=== PATIENT | female | born 1965 | race Caucasian/White ===

== ENCOUNTER 2017-08-25 16:07 | Inpatient (IN) ==
[2017-08-25 16:43] LABS: Bilirubin,Urine Negative (Negative); Blood,Urine Negative (Negative); Clarity,Urine Clear (Clear); Color,Urine Yellow (Yellow); Glucose,Urine (UA) Normal (Normal); Ketones,Urine Negative (Negative); Leukocyte Esterase,Urine Negative (Negative); Nitrite,Urine Negative (Negative); Protein,Urine Negative (Neg-Trace); Specific Gravity,Urine 1.018 (1.010-1.025); Urobilinogen,Urine Normal (Normal)
[2017-08-25 16:46] LABS: Amphetamine Screen,Urine Negative ng/mL (Cutoff=1000); Barbiturate Screen,Urine Negative ng/mL (Cutoff=200); Benzodiazepines Screen,Urine Positive ng/mL (Cutoff=200); Cannabinoid Screen,Urine Negative ng/mL (Cutoff = 50); Cocaine Screen,Urine Negative ng/mL (Cutoff= 300); Opiate Screen,Urine Negative ng/mL (Cutoff=300); Phencyclidine Screen,Urine Negative ng/mL (Cutoff=25)
[2017-08-25 17:07] LABS: Basophils # 0.1 K/mcL (0.0-0.2); Basophils % 1.2 %; Eosinophils # 0.1 K/mcL (0.0-0.6); Eosinophils % 1.2 %; Ethanol < 10 mg/dL (0-10); Hematocrit 40.4 % (35.3-44.9); Hemoglobin 13.5 g/dL (11.5-15.4); Immature Granulocytes % 0.3 % (0-4); Lymphocytes # 2.1 K/mcL (0.6-4.6); Mean Corpuscular HGB Conc 33.4 g/dL (31.6-35.5); Mean Corpuscular Hemoglobin 29.7 pg (28.0-33.3); Mean Platelet Volume 8.6 fL (9.4-12.4); Monocytes # 0.4 K/mcL (0.0-1.3); Monocytes % 6.6 %; Neutrophils # 3.4 K/mcL (1.6-8.9); Platelet Count 336 K/mcL (140-400); Red Blood Count 4.54 M/mcL (3.82-4.97); Red Cell Distribution Width 14.2 % (11.5-14.5); Salicylate 12.4 mg/dL (15.0-30.0); Segmented Neutrophils % 55.7 %
[2017-08-25 17:16] LABS: Blood Urea Nitrogen 7 mg/dL (6-20); Calcium 9.4 mg/dL (8.6-10.3); Carbon Dioxide 21 mEq/L (23-29); Chloride 102 mEq/L (98-107); Glucose 110 mg/dL (70-105); Osmolality,Calculated 277 (280-300); Potassium 3.5 mEq/L (3.5-5.1); Sodium 134 mEq/L (136-145)
--- NOTE | 2017-08-25 17:40 | Emergency Department Note ---
Disposition Clinical Impression: Suicidal ideation Alcohol withdrawal Qualifiers: Complication of substance-induced condition: uncomplicated Qualified Code(s): F10.230 - Alcohol dependence with withdrawal, uncomplicated Disposition: Admitted As Inpatient Condition: Fair Referrals: NONE,PCP [Primary Care Provider] - Forms: ED Satisfaction Letter Time of Disposition: 19:04 General Adult HPI - General Chief complaint: ED Psychiatric Symptoms Stated complaint: SI/ETOH abuse Time Seen by Provider: 08/25/17 16:19 Source: patient, family Mode of arrival: ambulatory Limitations: no limitations Nursing Notes Reviewed: Yes Vital Signs Reviewed: Yes - History of Present Illness HPI Narrative: Patient is a 51-year-old female with past medical history of depression, previous suicide attempt with admission to [facility], history of chronic alcohol use with 5-8 beers daily. She presents today due to concern for suicidal ideation. She says that she has been trying to stop alcohol over the past 12 hours and has started to have withdrawal symptoms of shaking. She was also also hearing voices that are telling her to kill and cut herself. She does state that she has a plan to take her sleeping medication that night so that she would not wake up. She denies any self injury today, denies any other ingestions at home prior to arrival. Denies any somatic complaints of chest pain, shortness breath, nausea, vomiting, fevers or chills have diffuse muscle aches from withdrawal. She said that her last drink was last night around 10 PM. Denies any visual hallucinations, homicidal ideation. Pain Scale: 7 - Related Data Home Medications Medication Instructions Recorded Confirmed Estradiol [Estrace] 1 mg PO DAILY 02/10/17 02/24/17 Gabapentin [Neurontin] 600 mg PO TID 02/10/17 02/24/17 Omeprazole [PriLOSEC] 40 mg PO DAILY 02/10/17 02/24/17 Quetiapine Fumarate [Seroquel] 200 mg PO HS 02/10/17 02/24/17 Ranitidine HCl [Acid [employer]] 150 mg PO BID 02/10/17 02/24/17 Trazodone HCl 200 mg PO HS 02/10/17 02/24/17 clonazePAM [Klonopin] 0.5 mg PO TID 02/10/17 02/24/17 lamoTRIgine [Lamictal] 300 mg PO HS 02/10/17 02/24/17 Diclofenac Sodium [Voltaren] 75 mg PO BID PRN 02/24/17 02/24/17 Fluticasone Propionate Nasal 1 spray NS DAILY 02/24/17 02/24/17 [Flonase] Previous Rx's Medication Instructions Recorded Docusate Sodium [Colace] 100 mg PO BID #60 capsule 02/10/17 Docusate [Colace] 100 mg PO BID #60 capsule 02/24/17 HYDROcodone/Acet 7.5/325 mg [[place] 1 tab PO Q6H PRN #20 tablet 02/24/17 7.5-325 mg] Promethazine [Phenergan] 25 mg PO Q6HR PRN #15 tablet 02/24/17 Allergies Allergy/AdvReac Type Severity Reaction Status Date / Time Buspirone [From BuSpar] AdvReac Shakiness Verified 02/24/17 07:59 codeine AdvReac Nausea Verified 02/24/17 07:59 succinylcholine AdvReac Difficulty Verified 02/24/17 10:31 Breathing All systems ED: reviewed and negative except as stated. Constitutional: Denies: fever Cardiovascular: Denies: chest pain, palpitations Respiratory: Denies: cough, dyspnea Gastrointestinal: Denies: abdominal pain, nausea, vomiting, diarrhea Genitourinary: Denies: urgency, dysuria, frequency Musculoskeletal: Reports: myalgia Psychiatric: Reports: depression, suicidal thoughts, auditory hallucinations. Denies: homicidal thoughts, visual hallucinations Past Medical History - Past Medical History Attestation: Yes The following information was validated with the patient. Source: patient Medical history: Reports: glaucoma, hypertension, seizures, other Surgical history: Reports: breast surgery, hysterectomy Psychiatric history: Reports: depression, panic disorder, prior suicide attempt , previous psychiatric hospitalization, other [employer] history: Reports: bilateral tubal ligation - Social History Smoking Status: Never smoker Smokeless Tobacco Status: No Alcohol use: Reports: heavy Drug use: Reports: none, marijuana Physical Exam - General Limitations: no limitations General appearance: alert - Head Head exam: atraumatic, normocephalic, normal inspection - Eye Eye exam: Present: normal appearance, PERRL, EOMI - ENT ENT exam: normal exam, normal oropharynx, mucous membranes moist - Neck Neck exam: Present: normal inspection, full ROM, trachea midline - Chest Chest inspection: Present: normal inspection, symmetric chest wall rise - Respiratory Respiratory exam: Present: normal lung sounds bilaterally - Cardiovascular Cardiovascular exam: Present: regular rate, normal rhythm, normal heart sounds - Abdominal Exam Abdominal exam: Present: soft, Non-Tender. Absent: tenderness, distention, guarding, rebound, rigidity - Extremities Exam Extremities exam: Present: normal inspection, full ROM. Absent: tenderness, pedal edema - Neurological Exam Neurological exam: Present: alert, oriented X3, CN II-XII intact, other ( Moderate tremors throughout upper extremity and lower extremities). Absent: motor sensory deficit - Psychiatric Psychiatric exam: Present: normal affect, normal mood - Skin Skin exam: Present: warm, dry, intact, normal color Course Course Narrative: Patient has elevated blood pressure reading. Otherwise, the rest of the vitals were within normal limits. Physical exam was fairly benign except for tremors of extremities. Medical clearance was obtained. She was positive for benzodiazepines, aspirin level 12.4. Otherwise, the rest of the workup was negative. Patient was given Ativan 2 mg, started on CIWA protocol, given banana bag. [place] slip was placed on chart for suicidal ideation with the plan. We will admit the patient for medical care for withdrawal symptoms. Patient was accepted by hospitalist for admission, discussed the need for a sitter due to pink slip status. Vital Signs Temperature 97.6 F 08/25/17 16:09 Pulse Rate 98 08/25/17 16:09 Respiratory Rate 18 08/25/17 16:09 Blood Pressure 161/115 08/25/17 16:09 O2 Sat by Pulse Oximetry 98 08/25/17 16:09 Temperature 97.6 F 08/25/17 16:09 Pulse Rate 82 08/25/17 18:31 Respiratory Rate 18 08/25/17 18:31 Blood Pressure 135/88 08/25/17 18:31 O2 Sat by Pulse Oximetry 97 08/25/17 18:31 Oxygen Delivery Oxygen Delivery Room Air Medical Decision Making - MDM Narrative Medical decision making narrative: Patient has elevated blood pressure reading. Otherwise, the rest of the vitals were within normal limits. Physical exam was fairly benign except for tremors of extremities. Medical clearance was obtained. She was positive for benzodiazepines, aspirin level 12.4. Otherwise, the rest of the workup was negative. Patient was given Ativan 2 mg, started on CIWA protocol, given banana bag. [place] slip was placed on chart for suicidal ideation with the plan. We will admit the patient for medical care for withdrawal symptoms. Patient was accepted by hospitalist for admission, discussed the need for a sitter due to pink slip status. - Medical Records Medical records reviewed: Yes I reviewed the patient's medical records. - Lab Data Lab results reviewed: Yes I reviewed the patient's lab results. Result diagrams: 08/25/17 16:39 08/25/17 16:39 Lab Results 08/25/17 08/25/17 08/25/17 Range/Units 16:23 16:23 16:39 WBC 6.0 (4.3-11.1) K/mcL RBC 4.54 (3.82-4.97) M/mcL Hgb 13.5 (11.5-15.4) g/dL Hct 40.4 (35.3-44.9) % MCV 89.0 (83.0-100.0) fL MCH 29.7 (28.0-33.3) pg MCHC 33.4 (31.6-35.5) g/dL RDW 14.2 (11.5-14.5) % Plt Count 336 (140-400) K/mcL MPV 8.6 L (9.4-12.4) fL Immature Gran % 0.3 (0-4) % Seg Neutrophils % 55.7 % Lymphocytes % 35.0 % Monocytes % 6.6 % Eosinophils % 1.2 % Basophils % 1.2 % Neutrophils # 3.4 (1.6-8.9) K/mcL Lymphocytes # 2.1 (0.6-4.6) K/mcL Monocytes # 0.4 (0.0-1.3) K/mcL Eosinophils # 0.1 (0.0-0.6) K/mcL Basophils # 0.1 (0.0-0.2) K/mcL Sodium (136-145) mEq/L Potassium (3.5-5.1) mEq/L Chloride (98-107) mEq/L Carbon Dioxide (23-29) mEq/L BUN (6-20) mg/dL Creatinine (0.60-1.20) mg/dL Est GFR ( Amer) (> 60) Est GFR (Non-Af Amer) (> 60) BUN/Creatinine Ratio (6-26) Glucose (70-105) mg/dL Calculated Osmolality (280-300) Calcium (8.6-10.3) mg/dL Urine Color Yellow (Yellow) Urine Clarity Clear (Clear) Urine pH 6.0 (5.0-8.0) pH Units Ur Specific [place] 1.018 (1.010-1.025) Urine Protein Negative (Neg-Trace) mg/dL Urine Glucose (UA) Normal (Normal) mg/dL Urine Ketones Negative (Negative) mg/dL Urine Blood Negative (Negative) Urine Nitrite Negative (Negative) Urine Bilirubin Negative (Negative) Urine Urobilinogen Normal (Normal) mg/dL Ur Leukocyte Esterase Negative (Negative) Ur Culture Indicated? NO (NO) Salicylates (15.0-30.0) mg/dL Urine Opiates Screen Negative (Mjkcib=489) ng/mL Acetaminophen (10-30) mcg/mL Ur Barbiturates Screen Negative (Aqfsac=227) ng/mL Ur Phencyclidine Scrn Negative (Cutoff=25) ng/mL Ur Amphetamines Screen Negative (Ozlahd=1702) ng/mL U Benzodiazepines Scrn Positive H (Wgamma=549) ng/mL Urine Cocaine Screen Negative (Cutoff= 300) ng/mL U Marijuana (THC) Screen Negative (Cutoff = 50) ng/mL Ethyl Alcohol (0-10) mg/dL 08/25/17 Range/Units 16:39 WBC (4.3-11.1) K/mcL RBC (3.82-4.97) M/mcL Hgb (11.5-15.4) g/dL Hct (35.3-44.9) % MCV (83.0-100.0) fL MCH (28.0-33.3) pg MCHC (31.6-35.5) g/dL RDW (11.5-14.5) % Plt Count (140-400) K/mcL MPV (9.4-12.4) fL Immature Gran % (0-4) % Seg Neutrophils % % Lymphocytes % % Monocytes % % Eosinophils % % Basophils % % Neutrophils # (1.6-8.9) K/mcL Lymphocytes # (0.6-4.6) K/mcL Monocytes # (0.0-1.3) K/mcL Eosinophils # (0.0-0.6) K/mcL Basophils # (0.0-0.2) K/mcL Sodium 134 L (136-145) mEq/L Potassium 3.5 (3.5-5.1) mEq/L Chloride 102 (98-107) mEq/L Carbon Dioxide 21 L (23-29) mEq/L BUN 7 (6-20) mg/dL Creatinine 0.72 (0.60-1.20) mg/dL Est GFR ( Amer) > 60 (> 60) Est GFR (Non-Af Amer) > 60 (> 60) BUN/Creatinine Ratio 10 (6-26) Glucose 110 H (70-105) mg/dL Calculated Osmolality 277 L (280-300) Calcium 9.4 (8.6-10.3) mg/dL Urine Color (Yellow) Urine Clarity (Clear) Urine pH (5.0-8.0) pH Units Ur Specific [place] (1.010-1.025) Urine Protein (Neg-Trace) mg/dL Urine Glucose (UA) (Normal) mg/dL Urine Ketones (Negative) mg/dL Urine Blood (Negative) Urine Nitrite (Negative) Urine Bilirubin (Negative) Urine Urobilinogen (Normal) mg/dL Ur Leukocyte Esterase (Negative) Ur Culture Indicated? (NO) Salicylates 12.4 L (15.0-30.0) mg/dL Urine Opiates Screen (Vwcspc=623) ng/mL Acetaminophen 11.0 (10-30) mcg/mL Ur Barbiturates Screen (Jgynqc=310) ng/mL Ur Phencyclidine Scrn (Cutoff=25) ng/mL Ur Amphetamines Screen (Otahaq=0138) ng/mL U Benzodiazepines Scrn (Pjkfcr=528) ng/mL Urine Cocaine Screen (Cutoff= 300) ng/mL U Marijuana (THC) Screen (Cutoff = 50) ng/mL Ethyl Alcohol < 10 (0-10) mg/dL - Radiology Data Radiology results reviewed: Yes I reviewed the patient's radiology results. S.B.A.R. - S.B.A.R. Situation: Demographics, MOA Background: Presenting Complaint, Relevant PMH, Meds, & Allergies Assessment: Vital Signs, Course and respsone to treatment, Exam Concerns, Patient/Family Expectation, Pertinant Lab Results, Outstanding Labs Recommendation: Barrier(s) to disposition, Recommendation based on pending studies, treatments, or consults S.B.A.Theo Report Given to: Kin Cordero Repor Time: 19:04 Attestation Statement - Attestation Attestation: I, Ronny Castro DO, examined this patient [id number] and my medical decision-making was reviewed with Dr. Mj Hamilton Resident Physician. I agree with the documented findings, disposition and treatment plan as described except to the extent set forth below. Please see my progress notes for details.
[2017-08-25] MEDS ORDERED: Thiamine (B-1) 100 MG, Folic Acid 1 MG, MVI, adult with vitamin K 10 ML in 0.9 % Sodi... IVPB SCH (18:00)
[2017-08-25] MEDS ORDERED: *HR* LORazepam 2 MG/ML VIAL IVP ONE (18:06)
[2017-08-25 18:19] LABS: BUN/Creatinine Ratio 10 (6-26); eGFR For African Americans > 60 (> 60); eGFR For Non-African Americans > 60 (> 60)
--- NOTE | 2017-08-25 18:42 | Emergency Department Note ---
Disposition Clinical Impression: Suicidal ideation Alcohol withdrawal Qualifiers: Complication of substance-induced condition: uncomplicated Qualified Code(s): F10.230 - Alcohol dependence with withdrawal, uncomplicated Disposition: Admitted As Inpatient Condition: Fair Referrals: NONE,PCP [Primary Care Provider] - Forms: ED Satisfaction Letter Time of Disposition: 18:43 General Adult HPI - General Chief complaint: ED Psychiatric Symptoms Stated complaint: SI/ETOH abuse Time Seen by Provider: 08/25/17 16:19 Source: patient, family Mode of arrival: ambulatory Limitations: no limitations - History of Present Illness Pain Scale: 7 - Related Data Home Medications Medication Instructions Recorded Confirmed Estradiol [Estrace] 1 mg PO DAILY 02/10/17 02/24/17 Gabapentin [Neurontin] 600 mg PO TID 02/10/17 02/24/17 Omeprazole [PriLOSEC] 40 mg PO DAILY 02/10/17 02/24/17 Quetiapine Fumarate [Seroquel] 200 mg PO HS 02/10/17 02/24/17 Ranitidine HCl [Acid [employer] Le[employer]] 150 mg PO BID 02/10/17 02/24/17 Trazodone HCl 200 mg PO HS 02/10/17 02/24/17 clonazePAM [Klonopin] 0.5 mg PO TID 02/10/17 02/24/17 lamoTRIgine [Lamictal] 300 mg PO HS 02/10/17 02/24/17 Diclofenac Sodium [Voltaren] 75 mg PO BID PRN 02/24/17 02/24/17 Fluticasone Propionate Nasal 1 spray NS DAILY 02/24/17 02/24/17 [Flonase] Previous Rx's Medication Instructions Recorded Docusate Sodium [Colace] 100 mg PO BID #60 capsule 02/10/17 Docusate [Colace] 100 mg PO BID #60 capsule 02/24/17 HYDROcodone/Acet 7.5/325 mg [[place] 1 tab PO Q6H PRN #20 tablet 02/24/17 7.5-325 mg] Promethazine [Phenergan] 25 mg PO Q6HR PRN #15 tablet 02/24/17 Allergies Allergy/AdvReac Type Severity Reaction Status Date / Time Buspirone [From BuSpar] AdvReac Shakiness Verified 02/24/17 07:59 codeine AdvReac Nausea Verified 02/24/17 07:59 succinylcholine AdvReac Difficulty Verified 02/24/17 10:31 Breathing Past Medical History - Past Medical History Medical history: Reports: glaucoma, hypertension, seizures, other Surgical history: Reports: breast surgery, hysterectomy Psychiatric history: Reports: depression, panic disorder, prior suicide attempt , previous psychiatric hospitalization, other [employer]PER[employer] history: Reports: bilateral tubal ligation - Social History Smoking Status: Never smoker Smokeless Tobacco Status: No Alcohol use: Reports: heavy Drug use: Reports: none, marijuana Physical Exam - General Limitations: no limitations General appearance: alert Course Vital Signs Temperature 97.6 F 08/25/17 16:09 Pulse Rate 98 08/25/17 16:09 Respiratory Rate 18 08/25/17 16:09 Blood Pressure 161/115 08/25/17 16:09 O2 Sat by Pulse Oximetry 98 08/25/17 16:09 Temperature 97.6 F 08/25/17 16:09 Pulse Rate 82 08/25/17 18:31 Respiratory Rate 18 08/25/17 18:31 Blood Pressure 135/88 08/25/17 18:31 O2 Sat by Pulse Oximetry 97 08/25/17 18:31 Oxygen Delivery Oxygen Delivery Room Air Medical Decision Making - Lab Data Result diagrams: 08/25/17 16:39 08/25/17 16:39 Lab Results 08/25/17 08/25/17 08/25/17 Range/Units 16:23 16:23 16:39 WBC 6.0 (4.3-11.1) K/mcL RBC 4.54 (3.82-4.97) M/mcL Hgb 13.5 (11.5-15.4) g/dL Hct 40.4 (35.3-44.9) % MCV 89.0 (83.0-100.0) fL MCH 29.7 (28.0-33.3) pg MCHC 33.4 (31.6-35.5) g/dL RDW 14.2 (11.5-14.5) % Plt Count 336 (140-400) K/mcL MPV 8.6 L (9.4-12.4) fL Immature Gran % 0.3 (0-4) % Seg Neutrophils % 55.7 % Lymphocytes % 35.0 % Monocytes % 6.6 % Eosinophils % 1.2 % Basophils % 1.2 % Neutrophils # 3.4 (1.6-8.9) K/mcL Lymphocytes # 2.1 (0.6-4.6) K/mcL Monocytes # 0.4 (0.0-1.3) K/mcL Eosinophils # 0.1 (0.0-0.6) K/mcL Basophils # 0.1 (0.0-0.2) K/mcL Sodium (136-145) mEq/L Potassium (3.5-5.1) mEq/L Chloride (98-107) mEq/L Carbon Dioxide (23-29) mEq/L BUN (6-20) mg/dL Creatinine (0.60-1.20) mg/dL Est GFR ( Amer) (> 60) Est GFR (Non-Af Amer) (> 60) BUN/Creatinine Ratio (6-26) Glucose (70-105) mg/dL Calculated Osmolality (280-300) Calcium (8.6-10.3) mg/dL Urine Color Yellow (Yellow) Urine Clarity Clear (Clear) Urine pH 6.0 (5.0-8.0) pH Units Ur Specific [place] 1.018 (1.010-1.025) Urine Protein Negative (Neg-Trace) mg/dL Urine Glucose (UA) Normal (Normal) mg/dL Urine Ketones Negative (Negative) mg/dL Urine Blood Negative (Negative) Urine Nitrite Negative (Negative) Urine Bilirubin Negative (Negative) Urine Urobilinogen Normal (Normal) mg/dL Ur Leukocyte Esterase Negative (Negative) Ur Culture Indicated? NO (NO) Salicylates (15.0-30.0) mg/dL Urine Opiates Screen Negative (Xvhskv=493) ng/mL Acetaminophen (10-30) mcg/mL Ur Barbiturates Screen Negative (Cplgji=397) ng/mL Ur Phencyclidine Scrn Negative (Cutoff=25) ng/mL Ur Amphetamines Screen Negative (Uesizr=6077) ng/mL U Benzodiazepines Scrn Positive H (Zufarx=294) ng/mL Urine Cocaine Screen Negative (Cutoff= 300) ng/mL U Marijuana (THC) Screen Negative (Cutoff = 50) ng/mL Ethyl Alcohol (0-10) mg/dL 08/25/17 Range/Units 16:39 WBC (4.3-11.1) K/mcL RBC (3.82-4.97) M/mcL Hgb (11.5-15.4) g/dL Hct (35.3-44.9) % MCV (83.0-100.0) fL MCH (28.0-33.3) pg MCHC (31.6-35.5) g/dL RDW (11.5-14.5) % Plt Count (140-400) K/mcL MPV (9.4-12.4) fL Immature Gran % (0-4) % Seg Neutrophils % % Lymphocytes % % Monocytes % % Eosinophils % % Basophils % % Neutrophils # (1.6-8.9) K/mcL Lymphocytes # (0.6-4.6) K/mcL Monocytes # (0.0-1.3) K/mcL Eosinophils # (0.0-0.6) K/mcL Basophils # (0.0-0.2) K/mcL Sodium 134 L (136-145) mEq/L Potassium 3.5 (3.5-5.1) mEq/L Chloride 102 (98-107) mEq/L Carbon Dioxide 21 L (23-29) mEq/L BUN 7 (6-20) mg/dL Creatinine 0.72 (0.60-1.20) mg/dL Est GFR ( Amer) > 60 (> 60) Est GFR (Non-Af Amer) > 60 (> 60) BUN/Creatinine Ratio 10 (6-26) Glucose 110 H (70-105) mg/dL Calculated Osmolality 277 L (280-300) Calcium 9.4 (8.6-10.3) mg/dL Urine Color (Yellow) Urine Clarity (Clear) Urine pH (5.0-8.0) pH Units Ur Specific [place] (1.010-1.025) Urine Protein (Neg-Trace) mg/dL Urine Glucose (UA) (Normal) mg/dL Urine Ketones (Negative) mg/dL Urine Blood (Negative) Urine Nitrite (Negative) Urine Bilirubin (Negative) Urine Urobilinogen (Normal) mg/dL Ur Leukocyte Esterase (Negative) Ur Culture Indicated? (NO) Salicylates 12.4 L (15.0-30.0) mg/dL Urine Opiates Screen (Alaist=303) ng/mL Acetaminophen 11.0 (10-30) mcg/mL Ur Barbiturates Screen (Kusktd=179) ng/mL Ur Phencyclidine Scrn (Cutoff=25) ng/mL Ur Amphetamines Screen (Zahbvo=3971) ng/mL U Benzodiazepines Scrn (Ggxclr=952) ng/mL Urine Cocaine Screen (Cutoff= 300) ng/mL U Marijuana (THC) Screen (Cutoff = 50) ng/mL Ethyl Alcohol < 10 (0-10) mg/dL Attestation Statement - Attestation Attestation: I, Ronny Castro DO, examined this patient [id number] and my medical decision-making was reviewed with Dr. Mj Hamilton, Resident Physician. I agree with the documented findings, disposition and treatment plan as described except to the extent set forth below. Please see my progress notes for details. 51-year-old female presents to the emergency room for evaluation of suicidal ideation, depression, significant life stressors and EDT H abuse with withdrawal presentation. Patient is coming in today for help. Patient denies any chest pain shortness of breath headaches vision changes nausea vomiting or diarrhea. Patient has generalized malaise and some intermittent confusion. She does appear to be symptoms of alcohol withdrawal. CiwA protocol was started here 2 mg of Ativan being given for symptomatic control. Medical clearance. Patient will be admitted for medical evaluation and then evaluation by the psychiatric team. Patient is otherwise currently stable at this point. Vital signs are unremarkable. Head is atraumatic pupils are equal round reactive intraocular muscles are intact. Lungs are clear heart is regular. Abdomen is soft. Patient has no signs of pitting edema. Patient will be admitted for definitive management. See detailed documentation of the physical exam, medical intervention, medical decision-making and disposition in the resident physician's note. No critical care applied this patient's treatment course. Patient will be admitted at this time for definitive management.
[2017-08-25] MEDS: *HR* Promethazine 25 MG/ML VIAL IVP PRN (18:59)
[2017-08-25] MEDS: *HR* LORazepam 2 MG/ML VIAL IVP PRN (18:59)
[2017-08-25] MEDS ORDERED: Naloxone 0.4 MG/ML INJ IVP PRN (21:15)
--- NOTE | 2017-08-25 21:22 | Internal Med History&Physical ---
Date of Encounter: 08/25/17 Time of Encounter: 21:20 Assessment and Plan (1) Alcohol withdrawal Current visit: Yes Status: Acute Schedule Librium CIWA protocol Qualifiers: Complication of substance-induced condition: with perceptual disturbance Qualified Code(s): F10.232 - Alcohol dependence with withdrawal with perceptual disturbance (2) Suicidal ideation Current visit: Yes Status: Acute Psych evaluation, suicide precautions, dual diagnosis, sitter (3) Depression Current visit: Yes Status: Acute Pending psych optimization Qualifiers: Active/Remission status: currently active Psychotic features: with psychotic features Qualified Code(s): 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 Mireles is a 51 year old female with history of depression, anxiety who presents with Suicidal ideations, alcohol withdrawals. She has been experiencing alcohol relapse and has been drinking approximately 10 cans of beer daily. Last drink was last evening at 9:30 PM. She developed shakes, tremors and symptoms of alcohol withdrawal. She visited her PCP today Dr. Robb in [place] and was advised to present to the ER for detoxification. On review she has also developed suicidal ideations with visual and auditory hallucinations telling her to cut herself. Suicidal thoughts did not improve with time and has been going on for the last few months. Past Med Surg Social Fam HX - Past Medical History Medical history: glaucoma, hypertension, seizures, other Psychiatric history: depression, panic disorder, prior suicide attempt, previous psychiatric hospitalization, other - Past Surgical History Surgical History: breast surgery, hysterectomy - Social History Smoking Status: Never smoker Smokeless Tobacco Status: No Alcohol use: heavy Drug use: none, marijuana Internal Medicine - H&P: Meds Estradiol [Estrace] 1 mg PO DAILY 02/10/17 [History] Gabapentin [Neurontin] 600 mg PO TID 02/10/17 [History] Quetiapine Fumarate [Seroquel] 200 mg PO HS 02/10/17 [History] Trazodone HCl 200 mg PO HS 02/10/17 [History] Albuterol Sulfate [Ventolin Hfa] 2 puff IH Q4-6H PRN 08/25/17 [History] Paroxetine [Paxil] 60 mg PO DAILY 08/25/17 [History] clonazePAM [Klonopin] 1 mg PO BID 08/25/17 [History] 3 Allergy/AdvReac Type Severity Reaction Status Date / Time Buspirone [From BuSpar] AdvReac Shakiness Verified 02/24/17 07:59 codeine AdvReac Nausea Verified 02/24/17 07:59 succinylcholine AdvReac Difficulty Verified 02/24/17 10:31 Breathing All Systems PM: A 10-system review of systems was performed and is negative for pertinent findings except as documented above in the HPI. - Constitutional Vitals: Temp Pulse Resp BP Pulse Ox 98.0 F 84 15 139/84 94 08/25/17 20:54 08/25/17 20:54 08/25/17 20:54 08/25/17 20:54 08/25/17 20:54 Exam: General - AAO x 3 Psych - Appropriate affect/speech. No agitation Eyes - JUSTIN. Eye lids intact. No scleral icterus Neuro - fine tremors . No gross peripheral or central neuro deficits on inspection Heart - Sinus. RRR. S1 and S2 present. No added HS/murmurs appreciated. No elevated JVD appreciated. Lung - Adequate air entry b/l, No crackles/wheezes appreciated GI - Soft, non-tender. No hepatosplenomegaly/ascites. BS+ - No CVA/suprapubic tenderness or palpable bladder distension Skin - Intact. No rash/petechiae/ecchymosis. Warm extremities MSK - Joints with normal ROM. No joint swellings Internal Med - H&P Results - Labs CBC & Chem 7: 08/25/17 16:39 08/25/17 16:39
[2017-08-25] MEDS: clonazePAM 1 MG TABLET PO SCH (22:22)
[2017-08-25] MEDS: traZODone 50 MG TABLET PO SCH (22:23)
[2017-08-25] MEDS: Gabapentin 300 MG CAPSULE PO SCH (22:23)
[2017-08-25] MEDS ORDERED: *HR* LORazepam 2 MG/ML VIAL IVP PRN ×2 (22:38)
[2017-08-25] MEDS: Ondansetron 4 MG/2 ML VIAL IVP PRN (23:02)
[2017-08-26] MEDS: *HR* LORazepam 2 MG/ML VIAL IVP PRN (03:39)
[2017-08-26 04:39] LABS: Hematocrit 37.3 % (35.3-44.9); Hemoglobin 12.4 g/dL (11.5-15.4); Mean Corpuscular HGB Conc 33.2 g/dL (31.6-35.5); Mean Corpuscular Volume 90.1 fL (83.0-100.0); Mean Platelet Volume 8.9 fL (9.4-12.4); Platelet Count 316 K/mcL (140-400); Red Blood Count 4.14 M/mcL (3.82-4.97); Red Cell Distribution Width 14.3 % (11.5-14.5)
[2017-08-26 04:59] LABS: Alanine Aminotransferase 10 Units/L (7-52); Albumin 3.7 g/dL (3.5-5.7); Albumin/Globulin Ratio 1.3 (1.1-2.2); Alkaline Phosphatase 60 Units/L (34-104); Aspartate Amino Transferase 14 Units/L (13-39); BUN/Creatinine Ratio 9 (6-26); Bilirubin,Total 0.3 mg/dL (0.3-1.0); Blood Urea Nitrogen 6 mg/dL (6-20); Calcium 8.6 mg/dL (8.6-10.3); Carbon Dioxide 24 mEq/L (23-29); Chloride 106 mEq/L (98-107); Globulin 2.8 g/dL (2.4-3.5); Glucose 82 mg/dL (70-105); Osmolality,Calculated 281 (280-300); Potassium 3.5 mEq/L (3.5-5.1); Sodium 137 mEq/L (136-145); Total Protein 6.5 g/dL (6.4-8.9); eGFR For African Americans > 60 (> 60); eGFR For Non-African Americans > 60 (> 60)
[2017-08-26] MEDS: *HR* Enoxaparin 40 MG/0.4 ML SYRINGE SQ SCH (05:15)
[2017-08-26] MEDS ORDERED: Gabapentin 300 MG CAPSULE PO SCH (09:00)
[2017-08-26] MEDS ORDERED: clonazePAM 1 MG TABLET PO SCH (09:00)
[2017-08-26] MEDS: Gabapentin 300 MG CAPSULE PO SCH ×3 (09:06→19:59)
[2017-08-26] MEDS: Folic Acid 1 MG TABLET PO SCH (09:06)
[2017-08-26] MEDS: clonazePAM 1 MG TABLET PO SCH ×2 (09:06→19:59)
[2017-08-26] MEDS: Vitamin B Complex/Vit C/Vit E 1 EACH TABLET PO SCH (09:07)
[2017-08-26] MEDS: *HR* Promethazine 25 MG/ML VIAL IVP PRN ×3 (10:26→21:53)
[2017-08-26] MEDS: Artificial Tears SOLN 15 ML BOTTLE LEFT EYE SCH ×3 (13:31→19:59)
--- NOTE | 2017-08-26 14:40 | Internal Med Progress Note ---
Date of Encounter: 08/26/17 Time of Encounter: 14:38 - Assessment and plan (1) Drug-seeking behavior Current Visit: Yes Status: Acute Assessment and plan: Requesting Ativan on a very frequent basis and appears to know exactly what to say to score on the CIWA to obtain such (2) Alcohol withdrawal Current Visit: Yes Status: Acute Assessment and plan: Continue CIWA protocol Social service consult Continue to monitor closely Qualifiers: Complication of substance-induced condition: with perceptual disturbance Qualified Code(s): F10.232 - Alcohol dependence with withdrawal with perceptual disturbance (3) Depression Current Visit: Yes Status: Acute Assessment and plan: Pending psych evaluation Qualifiers: Active/Remission status: currently active Psychotic features: with psychotic features Qualified Code(s): F32.3 - Major depressive disorder, single episode, severe with psychotic features (4) Suicidal ideation Current Visit: Yes Status: Acute Assessment and plan: Psych evaluation pending. Continue sitter, suicide precautions, alcohol dependence with withdrawal - Subjective Interval history: Patient is lying in bed. She states that she drinks 10 periods a day. She is alert and cooperative. She has no tremors noted. She continues to ask for Ativan. She states that she has bugs crawling her but if nobody's in the room she lies very quietly. She told me she does not want to be admitted to a rehabilitation she just wants to be dried out and then she will go home and see what she is going to do. We await her psych evaluation, she also complains of some nausea. 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 - Constitutional Vitals: Temp Pulse Resp BP Pulse Ox 97.5 F L 82 16 123/82 95 08/26/17 09:09 08/26/17 09:09 08/26/17 09:09 08/26/17 09:09 08/26/17 09:09 General appearance: Present: cooperative, A&O X 3, pleasant, underweight, answers questions appropriately - Head Head exam: Present: atraumatic, normocephalic - Eye Eye exam: Present: PERRL, conjuntiva pink, sclera anicteric Pupils: Present: PERRL Additional comments: Left eye is reported as blind by the patient. Slightly drooping no drainage noted no injection of the conjunctivae, sclera is pink and moist - Neck Neck exam general surgery: Present: supple, trachea midline. Absent: lymphadenopathy - Respiratory Respiratory exam: Present: CTAB. Absent: accessory muscle use, rales, rhonchi, wheezes - Cardiovascular Cardiovascular exam: Present: RRR, +S1, +S2. Absent: diastolic murmur, gallop, rubs, systolic murmur - GI/Abdominal GI/Abdominal exam: Present: normal bowel sounds, soft, no peritoneal signs. Absent: distended, tenderness - Extremities Exam Extremities exam: Present: warm, radial pulses palpable and symmetrical. Absent : calf tenderness, cyanotic, pedal edema - Neurological Exam Neurological exam: Present: alert, CN II-XII intact, oriented X3, no focal deficits, strengths equal and symetr throughout. Absent: motor sensory deficit , pronater drift, facial droop, speech deficit - Skin Skin exam: Present: dry, intact, normal color, warm Internal Medicine: Result - Labs CBC & Chem 7: 08/26/17 03:39 08/26/17 03:39 Labs: Short CBC 08/26/17 Range/Units 03:39 WBC 6.1 (4.3-11.1) K/mcL Hgb 12.4 (11.5-15.4) g/dL Hct 37.3 (35.3-44.9) % Plt Count 316 (140-400) K/mcL BMP 08/26/17 03:39 Sodium 137 Potassium 3.5 Chloride 106 Carbon Dioxide 24 BUN 6 Creatinine 0.68 Glucose 82 Calcium 8.6 Liver Function 08/26/17 Range/Units 03:39 Total Bilirubin 0.3 (0.3-1.0) mg/dL AST 14 (13-39) Units/L ALT 10 (7-52) Units/L Alkaline Phosphatase 60 (34-104) Units/L Albumin 3.7 (3.5-5.7) g/dL Consult Discharge Plan - Plan Referrals: NONE,PCP [Primary Care Provider] -
--- NOTE | 2017-08-26 17:30 | Consult Note ---
Date of Encounter: 08/26/17 Time of Encounter: 17:00 Assessment & Recommendation (1) Alcohol withdrawal Current visit: Yes Status: Chronic Assessment & Recommendation: Continue Close observation for safety and withdrawal symptoms Cont Ativan Detox protocol Refer to Alcohol rehab after discharge Qualifiers: Complication of substance-induced condition: uncomplicated Qualified Code(s ): F10.230 - Alcohol dependence with withdrawal, uncomplicated (2) Depression Current visit: Yes Status: Chronic Qualifiers: Depression Type: major depressive disorder Major depression recurrence: recurrent Active/Remission status: currently active Major depression episode severity: mild Qualified Code(s): F33.0 - Major depressive disorder, recurrent, mild (3) Drug-seeking behavior Current visit: Yes Status: Chronic (4) Suicidal ideation Current visit: Yes Status: Resolved History of Present Illness Patient: known to practice within the last 3 years Requesting Physician: Jose Manuel Moreland MD Reason for consult: depression, Si History of present illness: Ms. Mireles is a 51 year old female, , lives by self, on SSI with h/o depression and anxiety disorder, borderline personlity disorder, h/o multiple inpatient hoapitalizations, most recent 12yrsgo, h/o multiple suicide attempt (4 -5) by cutting by self, h/o alcohol use disorder, h/o alcohol withdrawal seizure disorder, h/o DT admitted to the medicine floor for alcohol withdrawal. Psychiatry consulted for depression, SI and hallucination. Patient seen at bedside laying in bed in no acute distress. She was calm, cooperative and well related. She mentioned she came to the hospital for detox from alcohol. Patient endorsed a long h/o of alcohol dependence with increase in her intake the past month after 6months of sobriety. Patient also endorsed a h/o of depression and anxiety and follows up with a Psychiatrist at [facility] and was last seen a month. Patient reported compliance with her medications which include Seroquel 200mg, Trazodone 200mg, Klonopin 1mg BID ad Gabepentin. She patient denied depressive symptoms at the time of her evaluation and reported exacerbation of her symptoms when she drinks heavily. There were no signs and symptoms of withdrawal and the time of eval but patient endorsed severe fatigue and severe dizziness with ambulation. On review of symptoms, she denied any mood/psychotic symptoms including AH/VH/TI/HI /SI. She is logical and goal directed and deem an imminent risk to self or others at this time. There were no significant finding on MSE. Diagnosis; Alcohol withdrawal Alcohol use disorder MDD recurrent in remission Unspefied anxiety disorder Plan: Continue to manage on the medical floor Continue CO for safety Continue to monitor for withdrawal signs and symptoms due to h/o DT Patient is psychiatrically stable at present time and can be discharged to follow up woth out patient Psychiatrist when medically stable CC: Jose Manuel Moreland MD Past Med Surg Social Fam HX - Past Medical History Medical history: glaucoma, hypertension, seizures, other - Past Psychiatric History Psychiatric history: Reports: anxiety, depression, previous psychiatric hospitalization Family History of Suicide: Attempted - Past Surgical History Surgical History: breast surgery, hysterectomy - Social History Smoking Status: Never smoker Smokeless Tobacco Status: No Alcohol use: heavy Drug use: none, marijuana - Family History Sister Hx Family Cancer: Yes (pancreatic) Medications & Allergies Estradiol [Estrace] 1 mg PO DAILY 02/10/17 [History] Gabapentin [Neurontin] 600 mg PO TID 02/10/17 [History] Quetiapine Fumarate [Seroquel] 200 mg PO HS 02/10/17 [History] Trazodone HCl 200 mg PO HS 02/10/17 [History] Albuterol Sulfate [Ventolin Hfa] 2 puff IH Q4-6H PRN 08/25/17 [History] Paroxetine [Paxil] 60 mg PO DAILY 08/25/17 [History] clonazePAM [Klonopin] 1 mg PO BID 08/25/17 [History] 3 Allergy/AdvReac Type Severity Reaction Status Date / Time Buspirone [From BuSpar] AdvReac Shakiness Verified 02/24/17 07:59 codeine AdvReac Nausea Verified 02/24/17 07:59 succinylcholine AdvReac Difficulty Verified 02/24/17 10:31 Breathing Review of Systems Constitutional: Reports: weakness Eyes: Reports: eye pain Ears, Nose, Throat: Denies: ear pain, throat pain, dental pain, hearing loss, congestion Cardiovascular: Denies: chest pain, palpitations, dyspnea on exertion Respiratory: Denies: cough, dyspnea, wheezes Gastrointestinal: Denies: abdominal pain, nausea, vomiting, diarrhea, constipation Genitourinary female: Denies: urgency, dysuria, frequency, abnormal menses, dyspareunia Musculoskeletal: Denies: joint swelling, joint pain Integumentary: Denies: rash, lesions, pruritus Neurological: Denies: headache, weakness, numbness, memory loss Psychiatric: Reports: depression Endocrine: Denies: heat or cold intolerance Hematologic/Lymphatic: Denies: easy bruising, lymphadenopathy Allergic/Immunologic: Denies: urticaria, itchy eyes Psychiatry Exam - Constitutional Vitals: Temp Pulse Resp BP Pulse Ox 97.5 F L 82 16 123/82 95 08/26/17 09:09 08/26/17 09:09 08/26/17 09:09 08/26/17 09:09 08/26/17 09:09 General appearance: age & developmentally appropriate - Musculoskeletal Gait: normal - Psychiatric Patient Orientation: Yes Person, Yes Time, Yes Place Level of alertness: Alert Behavior: calm, cooperative Psychomotor activity: Normal Eye Contact: Maintains Eye Contact Mood Description: Euthymic/stable Affect description: congruent with mood Speech Volume: Soft/Quiet Speech pattern: normal rate, normal rhythm Language & Vocabulary: consistent with education Thought Process: Logical, Goal Oriented Thought Content: Yes Intact Perceptual Disturbances: No Auditory hallucinations, No Visual hallucinations Attention Span Ability: Capable of Focused Attention Memory Description: Grossly Intact Patient Reliability: Reliable Historian Fund of knowledge: Yes average, Yes aware of current events Intelligence Estimate: Average Judgment: Limited Insight: Full Results - Drug Levels and Toxicology Drug Levels and Toxicology: n - Labs Labs: Laboratory Last Values WBC 6.1 K/mcL (4.3-11.1) 08/26/17 03:39 RBC 4.14 M/mcL (3.82-4.97) 08/26/17 03:39 Hgb 12.4 g/dL (11.5-15.4) 08/26/17 03:39 Hct 37.3 % (35.3-44.9) 08/26/17 03:39 MCV 90.1 fL (83.0-100.0) 08/26/17 03:39 MCH 30.0 pg (28.0-33.3) 08/26/17 03:39 MCHC 33.2 g/dL (31.6-35.5) 08/26/17 03:39 RDW 14.3 % (11.5-14.5) 08/26/17 03:39 Plt Count 316 K/mcL (140-400) 08/26/17 03:39 MPV 8.9 fL (9.4-12.4) L 08/26/17 03:39 Immature Gran % 0.3 % (0-4) 08/25/17 16:39 Seg Neutrophils % 55.7 % 08/25/17 16:39 Lymphocytes % 35.0 % 08/25/17 16:39 Monocytes % 6.6 % 08/25/17 16:39 Eosinophils % 1.2 % 08/25/17 16:39 Basophils % 1.2 % 08/25/17 16:39 Neutrophils # 3.4 K/mcL (1.6-8.9) 08/25/17 16:39 Lymphocytes # 2.1 K/mcL (0.6-4.6) 08/25/17 16:39 Monocytes # 0.4 K/mcL (0.0-1.3) 08/25/17 16:39 Eosinophils # 0.1 K/mcL (0.0-0.6) 08/25/17 16:39 Basophils # 0.1 K/mcL (0.0-0.2) 08/25/17 16:39 Sodium 137 mEq/L (136-145) 08/26/17 03:39 Potassium 3.5 mEq/L (3.5-5.1) 08/26/17 03:39 Chloride 106 mEq/L (98-107) 08/26/17 03:39 Carbon Dioxide 24 mEq/L (23-29) 08/26/17 03:39 BUN 6 mg/dL (6-20) 08/26/17 03:39 Creatinine 0.68 mg/dL (0.60-1.20) 08/26/17 03:39 Est GFR ( Amer) > 60 (> 60) 08/26/17 03:39 Est GFR (Non-Af Amer) > 60 (> 60) 08/26/17 03:39 BUN/Creatinine Ratio 9 (6-26) 08/26/17 03:39 Glucose 82 mg/dL (70-105) 08/26/17 03:39 Calculated Osmolality 281 (280-300) 08/26/17 03:39 Calcium 8.6 mg/dL (8.6-10.3) 08/26/17 03:39 Total Bilirubin 0.3 mg/dL (0.3-1.0) 08/26/17 03:39 AST 14 Units/L (13-39) 08/26/17 03:39 ALT 10 Units/L (7-52) 08/26/17 03:39 Alkaline Phosphatase 60 Units/L (34-104) 08/26/17 03:39 Serum Total Protein 6.5 g/dL (6.4-8.9) 08/26/17 03:39 Albumin 3.7 g/dL (3.5-5.7) 08/26/17 03:39 Globulin 2.8 g/dL (2.4-3.5) 08/26/17 03:39 Albumin/Globulin Ratio 1.3 (1.1-2.2) 08/26/17 03:39 Urine Color Yellow (Yellow) 08/25/17 16:23 Urine Clarity Clear (Clear) 08/25/17 16:23 Urine pH 6.0 pH Units (5.0-8.0) 08/25/17 16:23 Ur Specific [place] 1.018 (1.010-1.025) 08/25/17 16:23 Urine Protein Negative mg/dL (Neg-Trace) 08/25/17 16:23 Urine Glucose (UA) Normal mg/dL (Normal) 08/25/17 16:23 Urine Ketones Negative mg/dL (Negative) 08/25/17 16:23 Urine Blood Negative (Negative) 08/25/17 16:23 Urine Nitrite Negative (Negative) 08/25/17 16:23 Urine Bilirubin Negative (Negative) 08/25/17 16:23 Urine Urobilinogen Normal mg/dL (Normal) 08/25/17 16:23 Ur Leukocyte Esterase Negative (Negative) 08/25/17 16:23 Ur Culture Indicated? NO (NO) 08/25/17 16:23 Salicylates 12.4 mg/dL (15.0-30.0) L 08/25/17 16:39 Urine Opiates Screen Negative ng/mL (Ylsqob=460) 08/25/17 16:23 Acetaminophen 11.0 mcg/mL (10-30) 08/25/17 16:39 Ur Barbiturates Screen Negative ng/mL (Twrjqs=597) 08/25/17 16:23 Ur Phencyclidine Scrn Negative ng/mL (Cutoff=25) 08/25/17 16:23 Ur Amphetamines Screen Negative ng/mL (Oduuxx=7490) 08/25/17 16:23 U Benzodiazepines Scrn Positive ng/mL (Acijjo=094) H 08/25/17 16:23 Urine Cocaine Screen Negative ng/mL (Cutoff= 300) 08/25/17 16:23 U Marijuana (THC) Screen Negative ng/mL (Cutoff = 50) 08/25/17 16:23 Ethyl Alcohol < 10 mg/dL (0-10) 08/25/17 16:39 - Impressions Alcohol dependence with withdrawal MDD recurrent mild Consult Discharge Plan - Plan Instructions: Abuse of Alcohol (DC) Additional Instructions: jn Referrals: NONE,PCP [Primary Care Provider] - Capacity - Capacity Reason for capacity evaluation: Depression and SI
[2017-08-26] MEDS: Ibuprofen 600 MG TABLET PO PRN (18:19)
[2017-08-26] MEDS: Ondansetron 4 MG/2 ML VIAL IVP PRN (19:59)
[2017-08-26] MEDS: traZODone 50 MG TABLET PO SCH (19:59)
[2017-08-26] MEDS ORDERED: traZODone 50 MG TABLET PO SCH (21:00)
[2017-08-27] MEDS ORDERED: Ketorolac 15 MG/ML VIAL IVP ONE (02:51)
[2017-08-27] MEDS: *HR* Enoxaparin 40 MG/0.4 ML SYRINGE SQ SCH (05:33)
[2017-08-27] MEDS: *HR* Promethazine 25 MG/ML VIAL IVP PRN ×2 (05:33→12:03)
[2017-08-27] MEDS: clonazePAM 1 MG TABLET PO SCH (08:09)
[2017-08-27] MEDS: Gabapentin 300 MG CAPSULE PO SCH (08:09)
[2017-08-27] MEDS: Folic Acid 1 MG TABLET PO SCH (08:09)
[2017-08-27] MEDS: Vitamin B Complex/Vit C/Vit E 1 EACH TABLET PO SCH (08:10)
[2017-08-27] MEDS: Ibuprofen 600 MG TABLET PO PRN (08:17)
[2017-08-27] MEDS: Artificial Tears SOLN 15 ML BOTTLE LEFT EYE SCH ×2 (09:00→11:55)
[2017-08-27] MEDS ORDERED: Lactulose Oral Soln 20 GM/30 ML UDC PO ONE (11:02)
[2017-08-27 11:33] VITALS: BP 105/60
--- NOTE | 2017-08-27 11:42 | Discharge Summary ---
- NOTES TO OUTPATIENT PROVIDER Notes to Outpatient Provider: Follow-up with outpatient psychiatric service and primary care physician. Patient requesting Ativan for home and I defer to either her primary care provider or her mental health provider. Date of Encounter: 08/27/17 Time of Encounter: 11:38 - Discharge Diagnosis (1) Drug-seeking behavior Priority: Primary Status: Chronic (2) Alcohol withdrawal Priority: Primary Status: Chronic Qualifiers: Complication of substance-induced condition: uncomplicated Qualified Code(s ): F10.230 - Alcohol dependence with withdrawal, uncomplicated (3) Depression Priority: Primary Status: Chronic Qualifiers: Depression Type: major depressive disorder Major depression recurrence: recurrent Active/Remission status: currently active Major depression episode severity: mild Qualified Code(s): F33.0 - Major depressive disorder, recurrent, mild (4) Suicidal ideation Priority: Primary Status: Resolved (5) Constipation Priority: Primary Status: Acute Qualifiers: Constipation type: unspecified constipation type Qualified Code(s): K59.00 - Constipation, unspecified Hospital course: Ms. Mireles is a 51 year old female with a history of depression, anxiety, suicidal ideation and alcohol withdrawal who presented to the emergency room wanting to detox. She has been experiencing alcohol relapse for approximately a week or so with drinking 10 cans of beer daily. She developed shakes and tremors and symptoms of alcohol withdrawal and went to see her PCP who advised her to come to the ER for detoxification. She had some visual and auditory hallucinations and was thinking of cutting herself. She states the spots and going on for the last few months. She does follow with a community medical health associate. The psychiatry department here at [facility] saw the patient and stated she was logical and goal directed and was not an imminent risk to herself or others. She has not been triggering the alcohol withdrawal scale. She has been seeking after Ativan and reports symptoms well caregivers are in the room but when observed from the boss she is laying quietly and resting. She did get up and ambulate in the boss and has been up in a chair. She will follow-up with her primary care physician this week as well as her mental health provider. Lab work is stable. Vital signs are stable and she is auctioning well on room air. She is calm and cooperative. Discharge discussed with: patient, nurse - Time Spent with Patient Total time spent providing and/or coordinating discharge services: Less than 30 minutes - Discharge Medications Home Medications: Estradiol [Estrace] 1 mg PO DAILY 02/10/17 [History] Gabapentin [Neurontin] 600 mg PO TID 02/10/17 [History] Quetiapine Fumarate [Seroquel] 200 mg PO HS 02/10/17 [History] Trazodone HCl 200 mg PO HS 02/10/17 [History] Albuterol Sulfate [Ventolin Hfa] 2 puff IH Q4-6H PRN 08/25/17 [History] Paroxetine [Paxil] 60 mg PO DAILY 08/25/17 [History] clonazePAM [Klonopin] 1 mg PO BID 08/25/17 [History] Allergies/Adverse Reactions: 3 Allergy/AdvReac Type Severity Reaction Status Date / Time Buspirone [From BuSpar] AdvReac Shakiness Verified 02/24/17 07:59 codeine AdvReac Nausea Verified 02/24/17 07:59 succinylcholine AdvReac Difficulty Verified 02/24/17 10:31 Breathing Date of admission: 08/25/17 21:15 Primary care physician: PCP NONE Consults: 08/25/17 21:19 Consult to Psychiatry [CONS] Routine Consulting Provider: [facility] Reason for Consult: suicidal, depression, hallucination Call Completed: No Consult to Fiscal Services Manager [CONS] Routine Reason for SW Consult: alcohol Discharging clinician: Vaishali Carpenter Anticipated date of discharge: 08/27/17 - Constitutional Vitals: Temp Pulse Resp BP Pulse Ox 98.6 F 78 16 105/60 96 08/27/17 11:32 08/27/17 11:32 08/27/17 11:32 08/27/17 11:32 08/27/17 11:32 General appearance: Present: cooperative, A&O X 3, pleasant, no acute distress, underweight, answers questions appropriately - Head Head exam: Present: atraumatic, normocephalic - Eye Eye exam: Present: PERRL, conjuntiva pink, sclera anicteric Pupils: Present: PERRL - Neck Neck exam general surgery: Present: supple, trachea midline. Absent: lymphadenopathy - Respiratory Respiratory exam: Present: CTAB. Absent: accessory muscle use, rales, rhonchi, wheezes - Cardiovascular Cardiovascular exam: Present: RRR, +S1, +S2. Absent: diastolic murmur, gallop, rubs, systolic murmur - GI/Abdominal GI/Abdominal exam: Present: normal bowel sounds, soft, no peritoneal signs. Absent: distended, tenderness - Extremities Exam Extremities exam: Present: warm, radial pulses palpable and symmetrical. Absent : calf tenderness, cyanotic, pedal edema - Neurological Exam Neurological exam: Present: alert, CN II-XII intact, normal gait, oriented X3, no focal deficits. Absent: pronater drift, facial droop, speech deficit - Skin Skin exam: Present: dry, intact, normal color, warm - Patient Status Disposition: Home, Self-Care Condition: Fair Functional capacity at discharge: independent ambulation Overall status at discharge: patient is back to baseline - Discharge Instructions Instructions: Abuse of Alcohol (DC) Follow Up With: NONE,PCP [Primary Care Provider] - Additional Instructions: jn - Diet and Activity Activity: increase activity as tolerated Diet: advance to your usual diet
== END 2017-08-27 13:42 | disposition home or self-care (01) | DRG 897 ==
LOC: EMEROO 16:07 → 3BNU 16:07 → SUATTDRO 21:15
PROVIDERS: ADMIT Nurse Practitioner; ATTEND Psychiatry & Neurology Psychiatry